=== PATIENT | female | born 1990 | race Two or more races ===

== ENCOUNTER 2016-10-03 20:18 | Emergency (ER) | payer OTHER ==
[2016-10-03 20:23] VITALS: BP 142/79; PULSE 101; TEMP 98.4; BMI 32.3
--- NOTE | 2016-10-03 20:39 | PDOC ---
History of Present Illness - General Chief Complaint: Vaginal Bleeding Stated Complaint: VAGINAL BLEEDING History Source: Patient Exam Limitations: No Limitations - History of Present Illness Travel History: No Initial Comments: 10/03/16 21:37 LMP 08/22/2016 25-year-old female without past medical history presents complaining of vaginal spotting 4 hours without any pain. Patient denies fever, chills, nausea/ vomiting, diarrhea, chest pain, shortness of breath, abdominal pains, flank pains, burning upon urination, urinary frequency/hesitancy, urgency. Past History - Travel Traveled outside of the country in the last 30 days: No Close contact w/someone who was outside of country & ill: No - Past Medical History Allergies/Adverse Reactions: Allergies Allergy/AdvReac Type Severity Reaction Status Date / Time No Known Allergies Allergy Verified 10/03/16 20:23 Home Medications: Ambulatory Orders NK [No Known Home Medication] 10/03/16 Nitrofurantoin Monohyd/M-Cryst [Macrobid -] 100 mg PO BID #14 capsule 10/03/16 Asthma: Yes - Psycho/Social/Smoking Cessation Hx Suicidal Ideation: No Smoking History: Never smoked Review of Systems - Review of Systems Able to Perform ROS?: Yes Comments:: 10/03/16 20:44 CONSTITUTIONAL: Absent: fever, chills, diaphoresis, generalized weakness, malaise, loss of appetite HEENT: Absent: rhinorrhea, nasal congestion, throat pain, throat swelling, difficulty swallowing, mouth swelling, ear pain, eye pain, visual Changes CARDIOVASCULAR: Absent: chest pain, loss of consciousness, palpitations, irregular heart rate, peripheral edema RESPIRATORY: Absent: cough, shortness of breath, dyspnea with exertion, orthopnea, wheezing, stridor, hemoptysis GASTROINTESTINAL: Absent: abdominal pain, abdominal distension, nausea, vomiting, diarrhea, constipation, melena, hematochezia GENITOURINARY: Absent: dysuria, frequency, urgency, hesitancy, hematuria, flank pain, genital pain +vag staining MUSCULOSKELETAL: Absent: myalgia, arthralgia, joint swelling SKIN: Absent: rash, itching, pallor HEMATOLOGIC/IMMUNOLOGIC: Absent: easy bleeding, easy bruising, lymphadenopathy, frequent infections ENDOCRINE: Absent: unexplained weight gain, unexplained weight loss, heat intolerance, cold intolerance NEUROLOGIC: Absent: headache, focal weakness or paresthesias, dizziness, unsteady gait, seizure, mental status changes, bladder or bowel incontinence PSYCHIATRIC: Absent: anxiety, depression, suicidal or homicidal ideation, hallucinations. Is the patient limited Bel[place]ian proficient: No *Physical Exam - Vital Signs Last Vital Signs Temp Pulse Resp BP Pulse Ox 98.4 F 101 H 20 142/79 97 10/03/16 20:19 10/03/16 20:19 10/03/16 20:19 10/03/16 20:19 10/03/16 20:19 - Physical Exam Comments: 10/03/16 20:45 GENERAL: Well developed, well nourished. Awake and alert. No acute distress. HEENT: Normocephalic, atraumatic. PERRLA, EOMI. No conjunctival pallor. Sclera are non- icteric. Moist mucous membranes. Oropharynx is clear. NECK: Supple. Full ROM. No JVD. Carotid pulses 2+ and symmetric, without bruits. No thyromegaly. No lymphadenopathy. CARDIOVASCULAR: Regular rate and rhythm. No murmurs, rubs, or gallops. Distal pulses are 2+ and symmetric. PULMONARY: No evidence of respiratory distress. Lungs clear to auscultation bilaterally. No wheezing, rales or rhonchi. ABDOMINAL: Soft. Non-tender. Non-distended. No rebound or guarding. No organomegaly. Normoactive bowel sounds. MUSCULOSKELETAL Normal range of motion at all joints. No bony deformities or tenderness. No CVA tenderness. EXTREMITIES: No cyanosis. No clubbing. No edema. No calf tenderness. SKIN: Warm and dry. Normal capillary refill. No rashes. No jaundice. NEUROLOGICAL: Alert, awake, appropriate. Cranial nerves 2-12 intact. No deficits to light touch and temperature in face, upper extremities and lower extremities. No motor deficits in the in face, upper extremities and lower extremities. Normoreflexic in the upper and lower extremities. Normal speech. Toes are down- going bilaterally. Gait is normal without ataxia. PSYCHIATRIC: Cooperative. Good eye contact. Appropriate mood and affect. Pelvic: External genitalia normal without lesions. Vaginal vault is clear without blood or discharge. Cervix is long and closed. No cervical motion tenderness. Uterus is nontender and normal in size. Adnexa are nontender and without masses. ED Treatment Course - LABORATORY CBC & Chemistry Diagram: 10/03/16 20:35 10/03/16 20:35 Progress Note - Progress Note Progress Note: Transvaginal ultrasound: Single live intrauterine . Gestational age 6 weeks and 0 days. heart rate 1 22 bpm. No ovarian torsion. *DC/Admit/Observation/Transfer Diagnosis at time of Disposition: UTI (urinary tract infection) during , Threatened in early - Discharge Dispostion Condition at time of disposition: Stable Admit: No - Prescriptions Prescriptions: Nitrofurantoin Monohyd/M-Cryst [Macrobid -] 100 mg PO BID #14 capsule - Referrals Referrals: Marino Sanchez MD [Staff Physician] - Genaro Swan MD [Staff Physician] - - Patient Instructions Printed Discharge Instructions: DI for Threatened , DI for Urinary Tract Infection (UTI) Additional Instructions: Rx: macrobid 100mg take 1 tablet twice a day for your urinary tract infection Increase fluids Pelvic rest Follow up with your flame cutting machine operator on Wednesday Return to the Er for severe/persistent/worsening symptoms. [place] [address].1 today0 You have a transvaginal ultrasound this evening while in the emergency department. As I mentioned, this is a preliminary report. This is not the final report. On this preliminary report tonight, it shows there is a single live intrauterine . Gestational age is 6 weeks and 0 days. The heart rate is 122 bpm. Your cervix is closed. There are no ovarian torsions.
[2016-10-03 20:44] LABS: BASOPHIL 0.6 % (0-2.0); EOSINOPHIL 1.7 % (0-4.5); MCH 27.1 pg (25.7-33.7); MCHC 32.5 g/dl (32.0-36.0); MEAN CELL VOLUME 83.4 fl (80-96); MEAN PLT VOLUME 8.3 fl (7.5-11.1); NEUTROPHILS 76.3 % (42.8-82.8); PLATELET COUNT 312 K/MM3 (134-434); RDW 13.7 % (11.6-15.6); WHITE BLOOD COUNT 11.3 K/mm3 (4.0-10.0)
[2016-10-03 20:45] LABS: URINE APPEARANCE CLEAR; URINE BILIRUBIN NEGATIVE (NEGATIVE); URINE COLOR YELLOW; URINE GLUCOSE (UA) NEGATIVE (NEGATIVE); URINE KETONE 2+ (NEGATIVE); URINE NITRITE NEGATIVE (NEGATIVE); URINE PROTEIN NEGATIVE (NEGATIVE); URINE UROBILINOGEN 2.0 E.U/dl E.U./dl (0.2-1.0)
[2016-10-03 21:03] LABS: URINE BLOOD 3+ (NEGATIVE); URINE LEUK ESTERASE 2+ (NEGATIVE)
[2016-10-03 21:04] LABS: URINE BACTERIA RARE /hpf (NONE SEEN); URINE MUCUS RARE; URINE RBC 4 /hpf (0-3); URINE WBC 5 /hpf (3-5)
[2016-10-03 21:19] LABS: ALBUMIN 3.7 g/dl (3.4-5.0); ANION GAP 9 (8-16); BILIRUBIN,TOTAL 0.2 mg/dL (0.2-1.0); CALCIUM 8.8 mg/dL (8.5-10.1); CO2 26 mmol/L (21-32); CREATININE 0.7 mg/dL (0.55-1.02); GLUCOSE,RANDOM 122 mg/dL (74-106); SGOT/AST 14 U/L (15-37); SGPT/ALT 22 U/L (12-78)
[2016-10-03 21:34] LABS: ALK PHOS 61 U/L (45-117)
[2016-10-03] MEDS ORDERED: NITROFURANTOIN MACROCRYSTAL 50 MG CAPSULE (FP) PO SCH (21:45)
[2016-10-03] MEDS ORDERED: NITROFURANTOIN MACROCRYSTAL 50 MG CAPSULE (FP) ONE (21:47)
== END 2016-10-03 23:21 | disposition home or self-care (01) ==
LOC: JER 20:18
DX: O26.891 Other specified pregnancy related conditions, first trimester (principal); N39.0 Urinary tract infection, site not specified; O20.0 Threatened abortion; Z3A.01 Less than 8 weeks gestation of pregnancy
CPT/HCPCS: 36415; 76817-TC; 80053; 81003; 81015; 84702; 85025; 86850; 86900; 86901; 99283-25

== ENCOUNTER 2016-10-12 10:51 | Emergency (ER) | payer OTHER ==
[2016-10-12 10:55] VITALS: BMI 32.8
[2016-10-12] MEDS ORDERED: RHO(D) IMMUNE GLOBULIN 1,500 UNIT DISP.SYRIN IM ONE (11:26)
--- NOTE | 2016-10-12 11:52 | PDOC ---
History of Present Illness - General Chief Complaint: Vaginal Bleeding Stated Complaint: VAGINAL BLEEDING, 7 WKS Time Seen by Provider: 10/12/16 11:05 History Source: Patient Exam Limitations: No Limitations - History of Present Illness Travel History: No Initial Comments: 10/12/16 11:46 25-year-old female currently 7 weeks presents with lower abdominal cramping associated with pinkish now brown vaginal discharge. Patient states was here last week and was diagnosed with a UTI which she is currently on antibiotics for. Patient states ultrasound last week showed a normal IUP measuring 6 weeks 0 days and a heart rate of 122. Patient denies worsening urinary complaints, back pain, fever or chills. Timing/Duration: reports: changing over time Quality: reports: mild, cramping Abdominal Pain Onset Location: reports: suprapubic Pain Radiation: reports: no radiation Activities at Onset: reports: none Aggravating Factors: improves with: None Alleviating Factors: improves with: None Past History - Past Medical History Allergies/Adverse Reactions: Allergies Allergy/AdvReac Type Severity Reaction Status Date / Time No Known Allergies Allergy Verified 10/12/16 10:53 Home Medications: Ambulatory Orders NK [No Known Home Medication] 10/03/16 Asthma: Yes - Reproductive History Is Patient Now?: Yes (#): 2 Para: 1 Cervical CA: No Dysfunctional Uterine Bleeding: No Ectopic : No Endometrial CA: No Polycystic Ovaries: No Therapeutic (s) & number: No Tubal Ligation: No Spontaneous : 0 - Psycho/Social/Smoking Cessation Hx Anxiety: No Suicidal Ideation: No Smoking History: Never smoked Have you smoked in the past 12 months: No Information on smoking cessation initiated: No Hx Alcohol Use: No Drug/Substance Use Hx: No Substance Use Type: None Patient Lives Alone: No Lives with/in: spouse/SO Review of Systems - Review of Systems Able to Perform ROS?: Yes Constitutional: No: Symptoms Reported HEENTM: No: Symptoms Reported Respiratory: No: Symptoms reported Cardiac (ROS): No: Symptoms Reported ABD/GI: Yes: Abdominal cramping : Yes: Discharge Musculoskeletal: No: Back Pain Integumentary: No: Rash Neurological: No: Headache, Weakness, Dizziness *Physical Exam - Vital Signs Last Vital Signs Temp Pulse Resp BP Pulse Ox 98 F 97 H 18 146/85 100 10/12/16 10:54 10/12/16 10:54 10/12/16 10:54 10/12/16 10:54 10/12/16 10:54 - Physical Exam General Appearance: Yes: Nourished, Appropriately Dressed. No: Apparent Distress HEENT: positive: EOMI, POLO, TMs Normal, Pharynx Normal. negative: Pale Conjunctivae Neck: positive: Normal Thyroid, Supple Respiratory/Chest: positive: Lungs Clear, Normal Breath Sounds. negative: Respiratory Distress, Accessory Muscle Use Cardiovascular: positive: Regular Rhythm, Regular Rate. negative: Murmur Female Pelvic Exam: positive: cervical os closed, vaginal bleeding (scan light brown). negative: CMT, adnexal tenderness Gastrointestinal/Abdominal: positive: Normal Bowel Sounds, Soft, Tenderness ( mild mid suprapubic) Musculoskeletal: negative: CVA Tenderness Extremity: positive: Normal Capillary Refill. negative: Pedal Edema Integumentary: positive: Normal Color, Warm, Moist Neurologic: positive: Normal Mood/Affect, Motor Strength 5/5 (ambulatory) ED Treatment Course - RADIOLOGY Radiology Studies Ordered: Category Date Time Status TRANSVAGINAL US PREG [US] Stat Ultrasound 10/12/16 11:26 Ordered Medical Decision Making - Medical Decision Making 10/12/16 11:29 Patient with vaginal spotting with suprapubic cramping since this morning. Patient was last week and had O- blood. Patient was not given rhogam but states had with her previous . Patient also has a urinary tract infection diagnosed last week. No urine culture results found. Patient ordered for urinalysis urine culture RhoGAM, beta hCG and ultrasound. 10/12/16 13:35 Patient received medication and has an increase in her beta hCG. Patient ultrasound shows a single live intrauterine at 7 weeks 1 day with a heart rate of 148 bpm. Patient will be discharged to follow-up with her SHELLFISH BED WORKER. 10/12/16 13:35 Laboratory Tests 10/03/16 10/03/16 10/12/16 20:35 20:35 12:00 Beta HCG, Quant 15971.1 09675.0 Blood Type O NEGATIVE 10/12/16 12:00 Beta HCG, Quant Blood Type O NEGATIVE 10/12/16 13:35 Microbiology urine cx sent 10/12/16 13:37 *DC/Admit/Observation/Transfer Diagnosis at time of Disposition: Threatened in first trimester - Discharge Dispostion Disposition: HOME Condition at time of disposition: Good - Referrals Referrals: Fabricio Armstrong MD [Primary Care Provider] - - Patient Instructions Printed Discharge Instructions: DI for Threatened Additional Instructions: Your ultrasound shows the baby is measuring 7 weeks 1 day with a good heart rate of 1 48 bpm. Year beta hCG also has increased to 60,000. Please follow-up with your HUNTER as needed and may take Tylenol for any discomfort you experience. - Post Discharge Activity Work/School Note: Back to Work
--- NOTE | 2016-10-12 13:22 | PDOC ---
*Physical Exam - Vital Signs Last Vital Signs Temp Pulse Resp BP Pulse Ox 98 F 97 H 18 146/85 100 10/12/16 10:54 10/12/16 10:54 10/12/16 10:54 10/12/16 10:54 10/12/16 10:54 ED Treatment Course - ADDITIONAL ORDERS Additional order review: Laboratory Results 10/12/16 12:00 Beta HCG, Quant 45279.0 Medical Decision Making - Medical Decision Making 10/12/16 13:22 Patient seen and evaluated with the nurse practitioner. I agree with the overall evaluation, assessment, and management with the following summary of visit: Patient seen and evaluated with the nurse practitioner. I agree with the overall evaluation, assessment, and management with the following summary of visit: 25-year-old female presents with first trimester vaginal cramping/ vomiting. Agree with management as outlined, CBC, Rh, hCG, ultrasound. *DC/Admit/Observation/Transfer Diagnosis at time of Disposition: Threatened in first trimester - Discharge Dispostion Disposition: HOME Condition at time of disposition: Good - Referrals Referrals: Fabricio Armstrong MD [Primary Care Provider] - - Patient Instructions Printed Discharge Instructions: DI for Threatened Additional Instructions: Your ultrasound shows the baby is measuring 7 weeks 1 day with a good heart rate of 1 48 bpm. Year beta hCG also has increased to 60,000. Please follow-up with your ENGINE HEAD REPAIRER as needed and may take Tylenol for any discomfort you experience. - Post Discharge Activity Work/School Note: Back to Work
[2016-10-12 14:20] VITALS: BP 126/76; PULSE 89; TEMP 98.6
== END 2016-10-12 14:20 | disposition home or self-care (01) ==
LOC: JER 10:51
PROC: 3E0234Z Introduction of Serum, Toxoid and Vaccine into Muscle, Percutaneous Approach (ICD-10-PCS; principal; 2016-10-12)
DX: O20.0 Threatened abortion (principal); Z3A.01 Less than 8 weeks gestation of pregnancy
CPT/HCPCS: 36415; 76817-TC; 84702; 86850; 86900; 86901; 86999; 87086; 96372; 99284-25; J1561

== ENCOUNTER 2017-05-06 08:40 | Inpatient (IN) | payer OTHER ==
[2017-05-06 10:21] VITALS: BMI 34.2
[2017-05-06] MEDS ORDERED: DEXTROSE 5%-LACTATED RINGERS 1,000 ML IV SCH ×2 (10:45→22:45)
--- NOTE | 2017-05-06 10:54 | HP ---
Past Medical History - Primary Care Physician PCP:: Rukhsana Barroso - Admission Chief Complaint: 26 yrs , is sent from Dr Castellano's ( [facility]) , office for induction of labor due to cholestasis, pt c/o progressively increasing itching besides taking Ursodiol .Pt also c/o decreast FM for past 2 days . Sono 37 weeks, SLIUP, Vx, EFW 6'15"(3140gm)-61%tile , ant placenta ,BPP 6/8 ( bm- 0, ft-2, fm-2, af-2) Nst -2 History of Present Illness: Pnc started at [address] [place] [address].Wt gain 15 lbs work Up O neg, ( Rhogam taken in 1st trimester in ER due to h/o bleeding ) Anti D anti body pos, Repeat rhogam was given at 28 weeks in the clinic Rpr nr, Hbsag neg, Rubella pos, Quantiferon neg, Hiv neg 10/14/16 1 hr gtt 112, Pt was followed by [facility] for growth by serial sonograms pt c/o itching on 04/08/17 work revealed Bile acids 12., AST 30, ALT 12 pt was placed on Ursodiol bid Repeat labs on 04/22/17 , Bile acids 8, AST 28, ALT 21 . pt itching decreased, but has increased again for past one week c/o decrease FM History Source: Patient Limitations to Obtaining History: Language Barrier - Past Medical History MEDICAL RECORD TECHNICIAN: No: Alzheimer's, CVA, Dementia, Migraine, Multiple Sclerosis, Peripheral Neuropathy, Parkinson's, Seizure, Syncope, TIA, Vertigo, Other Cardiovascular: No: AFIB, Aneurysm, Aortic Insufficiency, Aortic Stenosis, CAD, CHF, Deep Vein Thrombosis, HTN, Hyperlipdemia, PA, Mitral Insufficiency, Mitral Stenosis, Murmur, Pulmonary Hypertension, Other Pulmonary: Yes: Asthma (last attack 2 years ago. no inhaler presently) Gastrointestinal: Yes: Constipation Hepatobiliary: Yes: Cholelithiasis Renal/: Yes: UTI (in 1st trimester, treated with antibiotics ( Macrobid)) ...: 2 ...Para: 1 ...Term: 1 (08/06/2012 6'14" ) ...: 0 ...Spon : 0 ...Induced : 0 ...Multiple Gestation: 0 ...EDC by Sono: 05/29/17 Heme/Onc: Yes: Anemia Infectious Disease: No: AIDS, HIV, STD's, Tuberculosis Psych: No: Addictions, Anxiety, Bipolar, Depression, Panic, Psychosis, Schizophrenia, Other Rheumatology: No: Fibromyalgia, Gout, Lupus, Rheumatoid Arthritis, Sarcoidosis, Vasculitis, Other Endocrine: No: Ant's Disease, [place]'s Disease, Diabetes Insipidus, Diabetes Mellitus, Hyperparathyroidism, Hyperthyroidism, Hypothyroidism, Osteopenia, SIADH, Other Dermatology: No: Basal Cell, Cellulitis, Eczema, Melanoma, Psoriasis, Squamous Cell, Other - Past Surgical History Past Surgical History: Yes: Tonsillectomy (in childhood) Hx Myomectomy: No Hx Transabdominal Cerclage: No - Smoking History Smoking history: Never smoked Have you smoked in the past 12 months: No - Alcohol/Substance Use Hx Alcohol Use: No History of Substance Use: reports: None Home Medications - Allergies Allergies/Adverse Reactions: Allergies Allergy/AdvReac Type Severity Reaction Status Date / Time apple Allergy Severe Verified 05/06/17 09:43 pineapple Allergy Severe Verified 05/06/17 09:43 shellfish derived Allergy Severe Verified 05/06/17 09:43 - Home Medications Home Medications: Ambulatory Orders Albuterol Sulfate Inhaler - [Ventolin Hfa Inhaler -] 1 - 2 inh PO Q4H PRN Vitamins (Sjr) - 1 tab PO DAILY 03/25/17 Ursodiol [Ariadna -] 500 mg PO BID 05/06/17 Physical Exam - Maternity Vital Signs: Vital Signs Temperature 98.2 F 05/06/17 10:00 Pulse Rate 71 05/06/17 10:00 Respiratory Rate 20 05/06/17 10:00 Blood Pressure 130/75 05/06/17 10:00 O2 Sat by Pulse Oximetry (%) Selected Entries 05/06/17 09:49 Weight 225 lb Constitutional: Yes: Well Nourished, Obese Eyes: Yes: WNL HENT: Yes: WNL, Normocephalic Neck: Yes: WNL Cardiovascular: Yes: WNL, Regular Rate and Rhythm Lungs: Clear to auscultation Breast(s): Yes: WNL. No: Mass - Abdominal Exam/OB Fundal Height: 36 Number of Fetuses: Single Presentation: Vertex Contractions: No Monitor Mode: External Heart Rate (range): 140 Heart Rate Location: [facility] Category: I Accelerations: Uniform Decelerations: None - Vaginal Exam/OB Vaginal Bleediing: No Dilatation (cm): close Effacement (%): 50 Amniotic Membrane Status: Intact Presentation: Vertex/Position Station: -3 - Physical Exam Musculoskeletal: Yes: WNL Extremities: Yes: WNL. No: Calf Tenderness Edema: No Integumentary: Yes: Tattoos Deep Tendon Reflex Grade: Normal +2 ...Motor Strength: WNL Psychiatric: Yes: WNL, Alert, Oriented - Labs Lab Results: Laboratory Tests 05/06/17 05/06/17 05/06/17 09:45 10:29 10:29 Hgb 10.9 Hct 33.7 Plt Count 268 Neutrophils % 76.7 Lymphocytes % 17.3 Monocytes % 4.8 Eosinophils % 0.6 PT with INR 10.50 INR 0.93 PTT (Actin FS) 27.5 Sodium Potassium Chloride Carbon Dioxide Total Bilirubin AST ALT Urine Protein Negative Blood Type 05/06/17 05/06/17 10:29 10:29 Hgb Hct Plt Count Neutrophils % Lymphocytes % Monocytes % Eosinophils % PT with INR INR PTT (Actin FS) Sodium 139 Potassium 3.8 Chloride 107 Carbon Dioxide 24 Total Bilirubin 0.4 D AST 21 D ALT 21 Urine Protein Blood Type O NEGATIVE Laboratory Tests 05/06/17 05/06/17 10:29 10:29 RPR Titer Nonreactive HIV 1&2 Antibody Screen Negative HIV P24 Antigen Negative Problem List - Problems (1) 36 to 37 weeks gestation of Code(s): CKH7335 - (2) Cholestasis during in third trimester Code(s): O26.613 - LIVER AND BILIARY TRACT DISORD IN , THIRD TRIMESTER ; K83.1 - OBSTRUCTION OF BILE DUCT (3) Obesity (BMI 30.0-34.9) Code(s): E66.9 - OBESITY, UNSPECIFIED (4) Elective induction of labor planned Code(s): NLM9580 - Assessment/Plan 26 yrs , 36.5 weeks, with cholestasis, decrease FM, Bpp 6/8 is recommended by M delivery GBS unknown Plan Pt is explained , r/b/a explained delivery v/s expecting management ,, not ltd to RDS in new born, or possibility of prolonged induction, poiibility of c/section Cervidil induction 11.20 AM inserted Gbs prophylaxis to start when onset of labor Trial of vaginal delivery
[2017-05-06 10:57] LABS: BASOPHIL 0.6 % (0-2.0); EOSINOPHIL 0.6 % (0-4.5); MCH 26.2 pg (25.7-33.7); MCHC 32.5 g/dl (32.0-36.0); MEAN CELL VOLUME 80.7 fl (80-96); MEAN PLT VOLUME 10.1 fl (7.5-11.1); NEUTROPHILS 76.7 % (42.8-82.8); PLATELET COUNT 268 K/MM3 (134-434); RDW 13.4 % (11.6-15.6); WHITE BLOOD COUNT 10.6 K/mm3 (4.0-10.0)
[2017-05-06 11:16] LABS: INR 0.93 (0.82-1.09); PROTHROMBIN TIME (PATIENT) 10.5 SEC (9.98-11.88)
[2017-05-06 11:19] LABS: ACTIVATED PTT 27.5 SECONDS (26.9-34.4)
[2017-05-06] MEDS ORDERED: DINOPROSTONE 10 MG VAGINAL SUPPOSITORY VG ONE (11:20)
[2017-05-06 11:24] LABS: ALBUMIN 2.5 g/dl (3.4-5.0); ANION GAP 8 (8-16); CALCIUM 8.4 mg/dL (8.5-10.1); CO2 24 mmol/L (21-32); GLUCOSE,RANDOM 68 mg/dL (74-106); URIC ACID 4.2 mg/dL (2.6-7.2)
[2017-05-06 11:27] LABS: ALK PHOS 277 U/L (45-117); BILIRUBIN,TOTAL 0.4 mg/dL (0.2-1.0); CREATININE 0.6 mg/dL (0.55-1.02); SGOT/AST 21 U/L (15-37); SGPT/ALT 21 U/L (12-78); TOT PROT 6.4 g/dl (6.4-8.2)
[2017-05-06 11:52] LABS: URINE APPEARANCE CLEAR; URINE BILIRUBIN NEGATIVE (NEGATIVE); URINE BLOOD NEGATIVE (NEGATIVE); URINE COLOR STRAW; URINE GLUCOSE (UA) NEGATIVE (NEGATIVE); URINE KETONE NEGATIVE (NEGATIVE); URINE NITRITE NEGATIVE (NEGATIVE); URINE PROTEIN NEGATIVE (NEGATIVE); URINE UROBILINOGEN NEGATIVE mg/dL (0.2-1.0)
[2017-05-06] MEDS ORDERED: SODIUM PHOSPHATE/NA BIPHOS 133 ML ENEMA PR ONE (12:18)
[2017-05-06 13:53] LABS: HIV 1 & 2 AB NEGATIVE; HIV 1 AGp24 NEGATIVE
[2017-05-06 17:19] LABS: URINE LEUK ESTERASE 3+ (NEGATIVE)
[2017-05-06 22:06] LABS: URINE BACTERIA MODERATE /hpf (NEGATIVE); URINE RBC 0-2 /hpf (0-3)
--- NOTE | 2017-05-06 22:43 | PN ---
Progress Note (short form) - Note Progress Note: cx 1 cm 50 vx -3 mi, fhr cat 1, cervidil removed , will start pitocin and ampicillin
[2017-05-06] MEDS ORDERED: PROMETHAZINE HCL 25 MG/1 ML VIAL IVPUSH ONE (22:45)
[2017-05-06] MEDS ORDERED: OXYTOCIN 15 UNITS/ LR 250 ML 15 UNIT/250 ML INFUS.BAG IVPB SCH (22:45)
[2017-05-06] MEDS ORDERED: BUTORPHANOL TARTRATE 1 MG/ML VIAL IVPUSH ONE (22:45)
[2017-05-06] MEDS ORDERED: AMPICILLIN - 2 GM in SODIUM CHLORIDE 100 ML IVPB ONE (23:00)
[2017-05-07] MEDS: AMPICILLIN - 1 GM in SODIUM CHLORIDE 100 ML IVPB SCH ×5 (03:15→18:53)
--- NOTE | 2017-05-07 08:33 | PN ---
Progress Note (short form) - Note Progress Note: cx 2 cm , 80 vx -3mi, arom, clear, fhr cat1, contraction q 2 min
[2017-05-07] MEDS ORDERED: PROMETHAZINE HCL 25 MG/1 ML VIAL IVPB ONE (11:45)
[2017-05-07] MEDS ORDERED: BUTORPHANOL TARTRATE 1 MG/ML VIAL IVPUSH ONE (11:45)
[2017-05-07] MEDS: FENTANYL/BUPIVACAINE/NS/PF - PCEA - 50 ML DISP.SYRIN EP SCH (15:45)
--- NOTE | 2017-05-07 17:04 | PN ---
Progress Note (short form) - Note Progress Note: cx 5 cm, 80 vx -2 ,mr, fhr cat 1, contraction q 3 min
[2017-05-07] MEDS ORDERED: GENTAMICIN INJECTION 80 MG in DEXTROSE 5%-WATER - 250 ML IVPB SCH (20:30)
[2017-05-07] MEDS ORDERED: METHYLERGONOVINE MALEATE 0.2 MG/1 ML AMP IM PRN (21:25)
[2017-05-07] MEDS ORDERED: WITCH HAZEL 50% (TUCKS) 40 PAD/JAR PAD TP PRN (21:25)
[2017-05-07] MEDS ORDERED: ACETAMINOPHEN 325 MG TABLET (FP) PO PRN ×2 (21:25→21:34)
[2017-05-07] MEDS ORDERED: BISACODYL 10 MG SUPP.RECT RC PRN (21:25)
[2017-05-07] MEDS ORDERED: BENZOCAINE 28 GM HEMORRHOIDAL OINTMENT TP PRN (21:25)
[2017-05-07] MEDS ORDERED: IBUPROFEN 600 MG TABLET (FP) PO PRN (21:25)
[2017-05-07] MEDS ORDERED: BENZOCAINE 20% 57 GM BOTTLE TP PRN (21:25)
[2017-05-07] MEDS ORDERED: oxyCODONE HCL 5 MG TABLET PO PRN (21:25)
--- NOTE | 2017-05-07 21:25 | PN ---
Progress Note (short form) - Note Progress Note: cx 9 cm 100 vx 0 mr fhr cat 1, wants to push , temp 100.2 , no tachy, genta 80 mg ivpb given
[2017-05-07] MEDS ORDERED: D5W-LR W/ 20 UNITS OXYTOCIN 1,000 ML IV SCH (21:30)
[2017-05-07] MEDS ORDERED: GENTAMICIN 80 MG PREMIXED IVPB 80 MG/100 ML BAG IVPB ONE (21:45)
[2017-05-07] MEDS ORDERED: OXYTOCIN 20 UNITS in 0.9% NS 20 UNIT/1,000 ML INFUS.BAG IV SCH (21:45)
[2017-05-07 22:49] LABS: VENOUS BLOOD GAS HCO3 23.4 meq/L (19-25); VENOUS PH 7.35 (7.32-7.42)
[2017-05-08] MEDS: AMPICILLIN - 1 GM in SODIUM CHLORIDE 100 ML IVPB SCH (07:43)
--- NOTE | 2017-05-08 08:35 | PN ---
Post Progress Note - Subjective Subjective: 26 yo Para 2 status post vaginal delivery, seen and evaluated. Doing well. Post Day: 1 Type of Delivery: Vital Signs: Vital Signs Temperature 98.2 F 05/08/17 06:00 Pulse Rate 85 05/08/17 06:00 Respiratory Rate 20 05/08/17 06:00 Blood Pressure 112/66 05/08/17 06:00 O2 Sat by Pulse Oximetry (%) 97 05/07/17 15:55 Breast Exam: Yes: Soft Uterus: Yes: Fundus Firm Abdomen/GI: Yes: Abdomen soft, Tolerating PO Lochia: Yes: Rubra Lochia, amount: Moderate Extremities: Yes: Calves non-tender Perineum: Yes: Intact Activity: Ambulating - Labs Labs: CBC WBC 10.6 K/mm3 (4.0-10.0) H 05/06/17 10:29 RBC 4.17 M/mm3 (3.60-5.2) 05/06/17 10:29 Hgb 10.9 GM/dL (10.7-15.3) 05/06/17 10:29 Hct 33.7 % (32.4-45.2) 05/06/17 10:29 MCV 80.7 fl (80-96) 05/06/17 10:29 MCH 26.2 pg (25.7-33.7) 05/06/17 10:29 MCHC 32.5 g/dl (32.0-36.0) 05/06/17 10:29 RDW 13.4 % (11.6-15.6) 05/06/17 10:29 Plt Count 268 K/MM3 (134-434) 05/06/17 10:29 MPV 10.1 fl (7.5-11.1) D 05/06/17 10:29 Neutrophils % 76.7 % (42.8-82.8) 05/06/17 10:29 Lymphocytes % 17.3 % (8-40) 05/06/17 10:29 Monocytes % 4.8 % (3.8-10.2) 05/06/17 10:29 Eosinophils % 0.6 % (0-4.5) 05/06/17 10:29 Basophils % 0.6 % (0-2.0) 11/30/17 10:29 Problem List - Problems (1) Status post normal vaginal delivery Code(s): [id number] - Assessment/Plan Status post normal vaginal delivery Stable Continue routine care
[2017-05-08 08:40] LABS: MCH 25.9 pg (25.7-33.7); MCHC 32.1 g/dl (32.0-36.0); MEAN CELL VOLUME 80.6 fl (80-96); MEAN PLT VOLUME 10.5 fl (7.5-11.1); PLATELET COUNT 274 K/MM3 (134-434); RDW 13.8 % (11.6-15.6); WHITE BLOOD COUNT 21.8 K/mm3 (4.0-10.0)
[2017-05-08] MEDS ORDERED: DIPHTH,PERTUSS(ACELL),TET 0.5 ML DISP.SYRIN IM ONE (10:00)
[2017-05-08 10:52] LABS: REACTIVE LYMPHOCYTES 1 % (0-80); TOTAL CELLS COUNTED 100
[2017-05-08 10:53] LABS: PLATELET ESTIMATE ADEQUATE
[2017-05-08] MEDS: FERROUS SO4 325 MG TABLET (FP) PO SCH ×5 (11:00→21:25)
[2017-05-08] MEDS: PRENATAL VITAMINS W/ FOLIC ACID TABLET (FP) PO SCH (11:53)
[2017-05-08] MEDS ORDERED: CEFAZOLIN 1 GM PUSH 1 GM/10 ML DISP.SYRIN IVPUSH ONE ×2 (16:00→17:15)
[2017-05-08] MEDS: FENTANYL/BUPIVACAINE/NS/PF - PCEA - 50 ML DISP.SYRIN EP SCH (17:01)
[2017-05-08] MEDS ORDERED: SENNOSIDES/DOCUSATE COMBO (SENNA PLUS) TABLET (UD) PO PRN (22:00)
[2017-05-09 08:43] LABS: BASOPHIL 0.2 % (0-2.0); EOSINOPHIL 0.9 % (0-4.5); MCH 26.3 pg (25.7-33.7); MCHC 32.4 g/dl (32.0-36.0); MEAN CELL VOLUME 81.1 fl (80-96); MEAN PLT VOLUME 10.1 fl (7.5-11.1); NEUTROPHILS 69.5 % (42.8-82.8); PLATELET COUNT 225 K/MM3 (134-434); RDW 13.5 % (11.6-15.6); WHITE BLOOD COUNT 12.2 K/mm3 (4.0-10.0)
[2017-05-09] MEDS: FERROUS SO4 325 MG TABLET (FP) PO SCH (10:04)
[2017-05-09] MEDS: PRENATAL VITAMINS W/ FOLIC ACID TABLET (FP) PO SCH (10:04)
[2017-05-09 10:33] VITALS: BP 117/50; PULSE 79; TEMP 98
== END 2017-05-09 16:30 | disposition home or self-care (01) | DRG 560 ==
LOC: JDEL 08:40 → JLDR 09:35 → J3W 05-07 23:58
PROVIDERS: ADMIT Obstetrics & Gynecology; ATTEND Obstetrics & Gynecology
PROC: 10E0XZZ Delivery of Products of Conception, External Approach (ICD-10-PCS; principal; 2017-05-07)
DX: O26.62 Liver and biliary tract disorders in childbirth (principal); K83.1 Obstruction of bile duct; O99.214 Obesity complicating childbirth; E66.9 Obesity, unspecified; Z68.34 Body mass index [BMI] 34.0-34.9, adult; Z3A.36 36 weeks gestation of pregnancy; Z37.0 Single live birth
CPT/HCPCS: 36415; 59409; 80053; 81003; 81015; 82803; 84550; 85025; 85461; 85610; 85730; 86593; 86850; 86900; 86901; 86999; 87081; 87389; 90715